=== PATIENT | female | born 1940 | race Caucasian/White ===

== ENCOUNTER 2025-01-04 15:15 | Outpatient (CLI) | payer MEDICARE | END 2025-01-04 15:16 | disposition home or self-care (01) | LOC: BICMAMMO 15:15 | PROVIDERS: ATTEND Internal Medicine | DX: Z12.31 Encounter for screening mammogram for malignant neoplasm of breast (principal); Z80.3 Family history of malignant neoplasm of breast; Z85.43 Personal history of malignant neoplasm of ovary; Z91.89 Other specified personal risk factors, not elsewhere classified | CPT/HCPCS: 77063; 77067 ==

== ENCOUNTER 2025-01-14 13:54 | Emergency (ER) | payer MEDICARE ==
[2025-01-14] MEDS ORDERED: Boostrix 0.5 ML (Tdap) VIAL (>/=7 yrs of age) ONE (14:20)
[2025-01-14] MEDS ORDERED: Acetaminophen 500 MG TAB ONE (15:26)
== END 2025-01-14 15:35 | disposition home or self-care (01) ==
LOC: ERS 13:54
DX: S00.83XA Contusion of other part of head, initial encounter (principal); S60.512A Abrasion of left hand, initial encounter; S09.90XA Unspecified injury of head, initial encounter; K21.9 Gastro-esophageal reflux disease without esophagitis; W19.XXXA Unspecified fall, initial encounter; Z79.899 Other long term (current) drug therapy
CPT/HCPCS: 70450; 70486; 72125; 90471; 90715